=== PATIENT | male | born 1950 | race Caucasian/White ===

== ENCOUNTER → 2020-08-02 | Outpatient (CLI) | payer MEDICARE | END | disposition home or self-care (01) | LOC: LABWHC1 14:51 | PROVIDERS: ATTEND Internal Medicine | DX: Z20.828 Contact with and (suspected) exposure to other viral communicable diseases (principal) | CPT/HCPCS: U0003; C9803 ==

== ENCOUNTER → 2020-09-12 | Outpatient (CLI) | payer MEDICARE ==
--- NOTE | 2020-09-12 16:54 | XR ---
EXAMINATION TYPE: XR chest 2V DATE OF EXAM: 09/12/2020 CLINICAL HISTORY: R05 COUGH. TECHNIQUE: Frontal and lateral view of the chest. COMPARISON: 12/03/2011 chest radiograph FINDINGS: The cardiomediastinal silhouette is within normal limits for size. Pulmonary vasculature i s normal. Redemonstrated minimal linear atelectasis and/or scarring of the lingula. There is no focal air space opacity, pleural effusion, or pneumothorax seen. Degenerative changes of the spine. IMPRESSION: No acute cardiopulmonary process.
== END | disposition home or self-care (01) ==
LOC: RADXRYALE 10:27
PROVIDERS: ATTEND Internal Medicine
DX: R05 Cough (principal)
CPT/HCPCS: 71046

== ENCOUNTER → 2020-10-17 | Outpatient (CLI) | payer MEDICARE ==
--- NOTE | 2020-10-17 10:04 | US ---
EXAMINATION TYPE: US abdomen complete DATE OF EXAM: 10/17/2020 COMPARISON: NONE CLINICAL HISTORY: R14.0 ABD DISTENTION. EXAM MEASUREMENTS: Liver Length: 14.7 cm Gallbladder Wall: 0.4 cm CBD: 0.4 cm Spleen: 12.6 cm Right Kidney: 12.9 x 4.7 x 4.5 cm Left Kidney: 11.7 x 5.1 x 4.9 cm Pancreas: Obscured by bowel gas Liver: wnl Gallbladder: irregular slightly thickened wall with probable small stones, linear area seen fundal Evidence for sonographic Hummel's sign: CBD: wnl Spleen: There appears to be multiple scattered calcifications and a large splenic calcification onesimo uring 4.7cm Right Kidney: Inferior pole obscured by bowel gas Left Kidney: Superior pole obscured by bowel gas, wnl as see Upper IVC: wnl Abd Aorta: Mostly obscured by overlying bowel gas, portions visualized shows calcified plaque IMPRESSION: 1. Calcified splenic granuloma. A larger shadowing calcification may be present. Splenic aneurysm is not excluded. 2. Cholelithiasis Recommendations: 1. CT abdomen pelvis could reevaluate the spleen
== END | disposition home or self-care (01) ==
LOC: RADUSWWP 08:44
PROVIDERS: ATTEND Internal Medicine
DX: K80.20 Calculus of gallbladder without cholecystitis without obstruction (principal); D73.89 Other diseases of spleen
CPT/HCPCS: 76700

== ENCOUNTER → 2022-01-08 | Outpatient (CLI) | payer MEDICARE ==
--- NOTE | 2022-01-08 16:14 | P.PN ---
Subjective Progress Note Date: 01/08/22 This is a 71-year-old male patient who has been diagnosed having sleep apnea and the patient is coming in to the sleep center as the patient has been having difficulties in finding the appropriate pressure mask interface. His last evaluation with me was at the office and at that time, the patient was reporting that the pressure was quite high and accordingly, I changed the APAP mode to include a pressure minimal 4 and a maximum of 7 which is a considerably lower pressure compared to whathe was on earlier. Nevertheless, I did this adjustment to achieve better tolerability. Noted the patient has severe RD and his baseline AHI is at 60 and he has undergone a previous CPAP titration that was essentially successful. On today's evaluation, the patient is reporting improvement in his tolerability. He is seeking a new mask. Noted the patient has tried different masks including Bee view , airfit F20, air touch, and more recently, he was given a F30 mask by his DME. It seems that he is still having difficulties. I check his compliance data on the machine. Over the past 30 days, the patient has done much better and his AHI is at 3.1 while on treatment and his leak is minimal at 32 L. His been averaging around 7.8 hours of CPAP use per night. As such, I would like to keep him at the lower pressure of APAP mode. At the same time, the patient is benefiting from the treatment. His main issue remains finding the appropriate mask to improve his tolerability. He has hypertension and he is taking losartan for blood pressure control. He is a mouth breather. He is obese. Objective - Exam his BP is 169/71, pulse is 70, respirations 16, temperature 97.5, saturation is 96% on room air oxygen, his sleepiness Guymon scale is at 18. His body weight is 210. The patient appeared well nourished and normally developed. Vital signs as documented. Head exam is unremarkable. No scleral icterus or corneal arcus noted. Neck is without jugular venous distension, thyromegaly, or carotid bruits. Carotid upstrokes are brisk bilaterally. Lungs are clear to auscultation and percussion. Cardiac exam reveals the PMI to be normally sized and situated. Rhythm is regular. First and second heart sounds normal. No murmurs, rubs or gallops. Abdominal exam reveals normal bowel sounds, no masses, no organomegaly and no aortic enlargement. Extremities are nonedematous and both femoral and pedal pulses are normal.Examination of the skin revealed no evidence of significant rashes, suspicious appearing nevi or other concerning lesions.Neurologically, the patient is awake and alert and the patient does not have any focal neurological deficit. Cranial nerves are essentially intact. Assessment and Plan Plan: 1 severe symptomatic obstructive sleep apnea with an AHI of 60. Initially the patient was started on a CPAP pressure of 12 cm of water. Following that, he was switched to an APAP mode and currently is on a APAP mode at a minimum pressure of 4 mics and pressure of 7. His tolerability is improved although the patient is having difficulties in finding the appropriate fullface mask for him. He is a mouth breather, and he is in need for a full face mask. The patient otherwise is seeing benefit on the treatment. He has no new complaints. Is morbidly obese. He has hypertension Plan We will add over multiple masks on this patient on today's evaluation. I tried the Simplus fullface mask. I tried the airfit F20 , 30, I also tried the air touch, Bee view and I am willing to also try the dreamware fullface mask for this patient down the road. I going to keep the same pressure settings. For now, the most appropriate mask for now is a large size air touch fullface mask which she is going to use. Encourage weight loss. Optimize sleep hygiene measures. Continue using the CPAP and the patient will see back in 3-6 months time in follow-up. A prescription was also given for a dreamware fullface mask medium size to use if he is unable to tolerate the air touch.
== END ==
LOC: SLEEP 13:00
PROVIDERS: ATTEND Internal Medicine Critical Care Medicine
DX: G47.33 Obstructive sleep apnea (adult) (pediatric) (principal); E66.01 Morbid (severe) obesity due to excess calories; I10 Essential (primary) hypertension; Z99.89 Dependence on other enabling machines and devices

== ENCOUNTER → 2022-03-21 | Outpatient (CLI) | payer MEDICARE ==
[2022-03-21 17:42] LABS: African American GFR (CKD) >90 (>60 ml/min/1.73 sqM); Blood Urea Nitrogen 13 mg/dL (9-20); Non-African American GFR(CKD) 86 (>60 ml/min/1.73 sqM)
--- NOTE | 2022-03-21 18:31 | CT ---
EXAMINATION TYPE: CT angio chest CT DLP: 393 mGycm, Automated exposure control for dose reduction was used. DATE OF EXAM: 03/21/2022 6:06 PM COMPARISON: Chest radiograph from 09/12/2020 CLINICAL INDICATION:Male, 71 years old with history of R06.02; SOB TECHNIQUE/CONTRAST: CTA scan of the thorax is performed with IV Contrast, patient injected with 100 mL of Isovue 370, pul monary embolism protocol. MIP images are created and reviewed. FINDINGS: Pulmonary Artery: There is no evidence for a filling defect within the pulmonary vasculature to sugge st acute pulmonary embolism. The pulmonary artery is of normal size. Lungs/Pleura: No evidence of focal consolidation, pleural effusion or pneumothorax. Airway: Large airways are patent. Heart: Heart is within normal limits for size. Fatty infiltration of the interatrial septum. Consulta tions are seen of the aortic valve. Mild atherosclerosis of the coronary arteries. Vasculature: No evidence of aortic aneurysm. Mediastinum: No gross evidence of adenopathy. Musculoskeletal: No acute osseous abnormalities Soft Tissues: Unremarkable. Lower neck: No significant findings. Upper Abdomen: Right calcified lesion within the spleen measuring up to 52 mm could represent traumatic pseudocyst. Scattered liver cysts measuring up to 17 mm. The gallbladder is surgically absent multiple densities are seen within the partially visualized duct. IMPRESSION: 1. No evidence of pulmonary embolism. 2. Peripherally calcified cyst within the spleen could represent a pseudocyst. Correlation with outsi de priors would be of benefit. 3. Gallbladder surgically absent with suspected cholelithiasis partially visualized.
== END | disposition home or self-care (01) ==
LOC: RADCTMAIN 16:51
PROVIDERS: ATTEND Internal Medicine Critical Care Medicine
DX: R06.02 Shortness of breath (principal); D73.4 Cyst of spleen; Z90.49 Acquired absence of other specified parts of digestive tract
CPT/HCPCS: 82565; 84520; 71275; 36415; Q9967

== ENCOUNTER 2023-01-02 09:32 | Day surgery (SDC) | payer MEDICARE ==
--- NOTE | 2023-01-01 21:48 | HP ---
HISTORY AND PHYSICAL DATE OF SURGERY: 01/02/2023. HISTORY OF PRESENT ILLNESS: Bryson Terrazas is a 72-year-old patient seen with progressive right knee pain. After treatment options were discussed with him, he elected to proceed with right knee arthroscopy. Consent regarding the procedure was obtained. PAST MEDICAL HISTORY: Hypertension. PAST SURGICAL HISTORY: Appendectomy, cholecystectomy. DAILY MEDICATIONS: 1. Amlodipine. 2. Losartan. ALLERGIES: None. SOCIAL HISTORY: The patient smokes cigarettes. PHYSICAL EVALUATION OF THE RIGHT KNEE: Range of motion is 0-120 degrees. Moderate effusion. Tenderness along the medial joint line. Positive medial Luan's. Ligaments are stable. Hip rotation is without pain. Distal neurovascular exam is intact. RADIOGRAPHS: Right knee radiographs revealed mild osteoarthritis. MRI revealed medial meniscal tear. Large effusion. Osteoarthritic changes. IMPRESSION: 1. Internal derangement of right knee with medial meniscal tear. 2. Hypertension. PLAN: Right knee arthroscopy with partial medial meniscectomy and debridement. MMODL / IJN: [id number] /
[~2023-01-02 09:32] MED LIST: DEXAMETHASONE SOD PHOSPHATE 4 MG/ML 1 ML VIAL IV ONE; HYDROmorphone 0.5 MG/0.5 ML SYRINGE IVP PRN; LACTATED RINGERS 1,000 ML IV SCH; LIDOCAINE 1% (10MG/ML) FOR IV START INTRADERMA PRN; MIDAZOLAM 2 MG/2 ML VIAL IV PRN; ONDANSETRON 4 MG/2 ML VIAL IVP ONE
[2023-01-02 10:15] LABS: Glucose,Whole Blood 94 mg/dL (70-110)
[2023-01-02] MEDS ORDERED: MIDAZOLAM 2 MG/2 ML VIAL ONE (10:48)
[2023-01-02] MEDS ORDERED: PROPOFOL 10 MG/ML 20 ML VIAL IV ONE (10:48)
[2023-01-02] MEDS ORDERED: fentaNYL (PF) 50 MCG/ML 2 ML AMP ONE (10:48)
[2023-01-02] MEDS ORDERED: LIDOCAINE 2% INJ 20 MG/ML (2 ML VIAL) ONE (10:48)
[2023-01-02] MEDS ORDERED: BUPIVACAIN-EPI 0.25%-1:200,000 30 ML VIAL INTRAARTIC ONE (10:53)
--- NOTE | 2023-01-02 11:29 | P.OP ---
Date of Procedure: 01/02/23 Preoperative Diagnosis: Internal derangement right knee Postoperative Diagnosis: 1. Tear medial and lateral meniscus right knee 2. Grade 2/3 chondromalacia medial femoral condyle right knee 3. Reactive synovitis medial, lateral and suprapatellar compartments right knee Procedure(s) Performed: 1. Arthroscopic partial medial and lateral meniscectomy right knee 2. Arthroscopic chondroplasty medial femoral condyle right knee 3. Arthroscopic partial synovectomy medial, lateral and suprapatellar compartments right knee Anesthesia: FARHATA, local Surgeon: Dell Stark Estimated Blood Loss (ml): 6 Pathology: none sent Condition: stable Disposition: PACU Indications for Procedure: 72-year-old gentleman seen with progressive right knee pain. After treatment options were discussed, he elected to proceed with arthroscopy. Operative Findings: See description of procedure Description of Procedure: Patient was taken to the operative suite. Patient underwent a general anesthetic by the department of anesthesia. Patient was given preoperative antibiotics. The right lower extremity was placed in a well-padded arthroscopic leg yancey. The right leg was prepped and draped in the normal sterile orthopedic fashion. A lateral parapatellar and suprapatellar incision was made. Trochars were inserted. Arthroscopy was initiated. Suprapatellar pouch revealed diffuse thick reactive synovitis. The patellofemoral joint appeared to articulate congruently. There was grade 1 chondromalacia of the patella with no significant tears present. The scope was guided into the medial gutter. No loose bodies or plica were identified. The scope was then guided into the medial compartment. A medial parapatellar incision was made. Trocar inserted followed by probe. There was a complex tear involving the posterior horn of the medial meniscus. There were grade 2/3 chondromalacia changes of the medial femoral condyle with some diffuse osteochondral tears present. There was thick reactive synovitis anteriorly. I performed a partial medial meniscectomy getting down to stable meniscal tissue. I performed a chondroplasty of the medial femoral condyle getting down to stable osteochondral tissue. I performed a partial synovectomy decompressing the reactive synovitis. The residual meniscus was stable. The residual osteochondral surface medial femoral condyle. Stable. There was good decompression of the synovitis. Scope and probe were then guided into the intercondylar notch. Cruciates were identified, probed and found to be stable. The scope and probe were then guided into lateral compartment. There was a radial tear mid body lateral meniscus. There was no significant chondromalacia. There was some reactive synovitis anteriorly. I performed a partial lateral meniscectomy getting down to stable meniscal tissue. I performed a partial synovectomy. The residual meniscus was stable. There was good decompression of the synovitis. The scope was in guided back into the suprapatellar compartment. I introduced a motorized shaver into the suprapatellar compartment. I debrided some piecemeal fragments of meniscus that I encountered. I performed a partial synovectomy. The shaver was now removed. There was good decompression of the synovitis. I now took one more look on the entire knee, no residual debris. Instruments were now removed from the joint. The joint was infiltrated with .25% Marcaine. Steri-Strips were applied to the portal sites. Sterile dressings were applied. The patient was placed into a UMAIR hose. No tourniquet was utilized. The patient was awakened, transferred to a bed and taken to recovery stable satisfactory condition.
[2023-01-02 11:33] VITALS: TEMP 97
[2023-01-02 11:39] VITALS: RESP 16
[2023-01-02] MEDS ORDERED: HYDROcodone/APAP 5-325MG 1 EACH TAB ONE (12:32)
[2023-01-02] MEDS ORDERED: HYDROcodone/APAP 5-325MG 1 EACH TAB PO ONE (12:33)
[2023-01-02 12:40] VITALS: BP 143/70; PULSE 71
== END 2023-01-02 13:25 | disposition home or self-care (01) ==
LOC: OR 09:32
PROVIDERS: ATTEND Orthopaedic Surgery
DX: S83.231A Complex tear of medial meniscus, current injury, right knee, initial encounter (principal); S83.281A Other tear of lateral meniscus, current injury, right knee, initial encounter; M94.261 Chondromalacia, right knee; M65.861 Other synovitis and tenosynovitis, right lower leg; I10 Essential (primary) hypertension; M17.11 Unilateral primary osteoarthritis, right knee; F17.210 Nicotine dependence, cigarettes, uncomplicated; Z90.49 Acquired absence of other specified parts of digestive tract; Z79.899 Other long term (current) drug therapy; J45.909 Unspecified asthma, uncomplicated; G47.33 Obstructive sleep apnea (adult) (pediatric); Z99.89 Dependence on other enabling machines and devices; X58.XXXA Exposure to other specified factors, initial encounter
CPT/HCPCS: 29880; J2250; J1100; J0690; J2405; J3010; J2704; J2001

== ENCOUNTER → 2023-07-09 | Outpatient (CLI) | payer MEDICARE ==
--- NOTE | 2023-07-09 09:26 | CTL ---
EXAMINATION TYPE: CT Low Dose Lung DATE OF EXAM ORDERED: 07/09/2023 HISTORY: Shortness of breath.. Lung cancer screening CT DLP: 94.[address] CTDI: 2.3 mGy Automated exposure control for dose reduction was used. COMPARISON: 03/21/2022. TECHNIQUE: Low dose computed tomography scan was performed through the chest at 1 mm thick sections a nd reconstructed images in multiple planes at 1 mm and [address] DIAGNOSTIC QUALITY: Satisfactory FINDINGS: LUNG NODULES: None. LUNGS: COPD: Severity: Mild centrilobular emphysema. Fibrosis: Severity: None Lymph nodes: None. Other findings: RIGHT PLEURAL SPACE: Effusion: None Calcification: None Thickening: None Pneumothorax: None LEFT PLEURAL SPACE: Effusion: None Calcification: None Thickening: None Pneumothorax: None HEART: There is moderate vascular calcification throughout the thoracic aorta without evidence of aneurysmal dilation. Heart Size: Normal Coronary Calcification: Mild coronary calcium is seen within the left coronary artery. Pericardial Effusion: None OTHER FINDINGS: Upper abdomen: Unchanged from calcified cyst within the spleen. Bony thorax: None Supraclavicular region: None Other: None IMPRESSION: 1. Negative lung cancer screening examination for new or significant pulmonary nodules. 2. Mild emphysema. 3. Mild coronary calcium. CT LUNG RAD AND CT CHEST RECOMMENDATION: Lung-Rad 1 Negative: Continue annual screening with LDCT in 12 months.
== END | disposition home or self-care (01) ==
LOC: RADCTMAIN 08:08
PROVIDERS: ATTEND Internal Medicine Critical Care Medicine
DX: Z12.2 Encounter for screening for malignant neoplasm of respiratory organs (principal); J43.2 Centrilobular emphysema; I25.10 Atherosclerotic heart disease of native coronary artery without angina pectoris; F17.210 Nicotine dependence, cigarettes, uncomplicated
CPT/HCPCS: 71271

== ENCOUNTER → 2024-07-15 | Outpatient (CLI) | payer MEDICARE ==
--- NOTE | 2024-07-15 16:44 | CTL ---
EXAMINATION TYPE: CT Low Dose Lung DATE OF EXAM ORDERED: 07/15/2024 COMPARISON: 07/09/2023 HISTORY: . Low Dose CT Lung Screening CT DLP: [address] CTDI: 2.14 mGy IV CONTRAST USED: None. TECHNIQUE: Low dose computed tomography scan was performed through the chest at 1 millimeter thick se ctions and reconstructed images in the coronal plane at [address] DIAGNOSTIC QUALITY: Satisfactory FINDINGS: LUNG NODULES: Not presentLeft lung: no nodules identified.Right lung: no nodules identified. LUNGS: COPD: Severity: None Fibrosis: Severity:None Lymph nodes: None Other findings: None RIGHT PLEURAL SPACE: Effusion: None Calcification: None Thickening: None Pneumothorax: None LEFT PLEURAL SPACE: Effusion: None Calcification: None Thickening: None Pneumothorax: None HEART: Heart Size: Mildly enlarged Coronary calcification: Mild Pericardial effusion: None OTHER FINDINGS: Upper abdomen: No significant abnormality Bony thorax: Degenerative changes Supraclavicular region: No significant abnormalityOther: No significant abnormalityI IMPRESSION: No pulmonary nodularity visualized ureters and [address] CHEST RECOMMENDATION: Follow-up screening in one year CT LUNG RAD: LUNG RAD CATEGORY 1 negative [facility] Yvon Baca, , 07/15/2024 4:41 PM
== END | disposition home or self-care (01) ==
LOC: RADCTMAIN 15:27
PROVIDERS: ATTEND Internal Medicine Critical Care Medicine
DX: Z12.2 Encounter for screening for malignant neoplasm of respiratory organs (principal); F17.210 Nicotine dependence, cigarettes, uncomplicated
CPT/HCPCS: 71271